=== PATIENT | female | born 1980 | race Asian ===

== ENCOUNTER 2018-07-22 14:39 | Emergency (ER) | payer OTHER ==
[~2018-07-22] VITALS: Ht 154.9 cm; Wt 52.2 kg
[2018-07-22 14:57] VITALS: Ht 154.9 cm; Wt 52.2 kg
[2018-07-22 15:50] LABS: BASOPHIL % 0.4 % (0-2); PLATELET COUNT 244 x10^3mcL (130-400); RED CELL DISTRIBUTION WIDTH 12.6 % (11.5-14.5)
[2018-07-22 17:09] VITALS: BP 110/63
== END 2018-07-22 17:09 | disposition home or self-care (01) ==
LOC: ED 14:39
PROVIDERS: Emergency Medicine
DX: O03.4 Incomplete spontaneous abortion without complication (principal)
CPT/HCPCS: 36415

== ENCOUNTER 2019-09-08 09:03 | Emergency (ER) | payer OTHER ==
[~2019-09-08] VITALS: Ht 162.6 cm; Wt 53.1 kg
[2019-09-08 09:06] VITALS: Ht 162.6 cm; Wt 53.1 kg
[2019-09-08 11:25] VITALS: BP 113/72
== END 2019-09-08 11:25 | disposition home or self-care (01) ==
LOC: ED 09:03
DX: B34.9 Viral infection, unspecified (principal)
CPT/HCPCS: J1885